=== PATIENT | female | born 1960 | race African-American/Black ===

== ENCOUNTER 2022-12-06 22:36 | Emergency (ER) | payer BC, OTHER ==
[~2022-12-06] VITALS: Ht 165.1 cm; Wt 77.0 kg
[~2022-12-06 22:36] MED LIST: ASPIRIN; HTN MEDS; OMEPRAZOLE
[2022-12-06 22:38] VITALS: BP 114/87
[2022-12-07] MEDS ORDERED: HYDROCODONE/ACETAMINOPHEN 5/325MG TABLET PO ONE (00:30)
== END 2022-12-07 02:02 | disposition home or self-care (01) ==
LOC: ER 22:46
DX: S93.491A Sprain of other ligament of right ankle, initial encounter (principal); I10 Essential (primary) hypertension; Z79.82 Long term (current) use of aspirin; Z90.710 Acquired absence of both cervix and uterus; W01.0XXA Fall on same level from slipping, tripping and stumbling without subsequent striking against object, initial encounter; Y93.89 Activity, other specified; Y92.89 Other specified places as the place of occurrence of the external cause; Y99.8 Other external cause status
CPT/HCPCS: 73590; 73610; 99284